=== PATIENT | female | born 1950 | race Caucasian/White ===

== ENCOUNTER 2019-11-15 10:51 | Inpatient (IN) | payer MEDICARE, BC, OTHER ==
[~2019-11-15] VITALS: Ht 147.3 cm; Wt 48.1 kg
[2019-11-15] MEDS ORDERED: ELIQ2.5T PO (11:01)
[2019-11-15] MEDS ORDERED: ZOFR4TAB16 PO (11:01)
--- NOTE | 2019-11-15 11:49 | REP ---
CT BRAIN WITHOUT CONTRAST: HISTORY: Altered mental status. No comparison brain imaging. FINDINGS: Preliminary digital digital marketing associate radiograph is unremarkable. Bone window settings demonstrate an intact bony calvarium. There is heavy vascular calcification in the distal internal carotid and vertebral arteries. Visualized paranasal sinuses are clear. No intraorbital abnormality. There is generalized volume loss. Small vessel atherosclerotic changes are seen in the periventricular white matter. There is no evidence intracranial hemorrhage or acute infarction. No mass, extra-axial fluid collection or midline shift is seen. IMPRESSION: Generalized volume loss small vessel changes and extensive vascular calcification. No acute intracranial lesion. Electronically Signed by Carmelo Valdez MD 11/15/2019 12:30 P
[2019-11-15 11:51] LABS: VENOUS BASE EXCESS -3.6 (-2.0-2.0); VENOUS HCO3 21.9 MEQ/L (23.0-27.0); VENOUS O2 SATURATION 55.4 % (60.0-80.0); VENOUS PARTIAL PRESSURE O2 32.3 mmHg (30.0-50.0); VENOUS PH 7.345 UNITS (7.330-7.430); VENOUS STANDARD HCO3 20.5 MEQ/L; VENOUS TOTAL CO2 23.1 MEQ/L (24.0-28.0)
[2019-11-15 11:55] LABS: BASO # 0.1 10^3/uL (0.0-0.2); BASO % 0.9 % (0.0-1.0); EOS # 0.1 10^3/uL (0.0-0.5); EOS % 0.6 % (0.0-3.0); HEMATOCRIT 41.1 % (36.0-47.0); HEMOGLOBIN 14.1 g/dl (12.0-15.5); LYMPH # 1.3 10^3/uL (1.5-5.0); LYMPH % 13.5 % (24.0-44.0); MEAN CORPUSCULAR HEMOGLOBIN 30.9 pg (27.0-33.0); MEAN CORPUSCULAR HGB CONC 34.3 g/dl (32.0-36.5); MEAN CORPUSCULAR VOLUME 90.1 fl (80.0-96.0); NEUTROPHILS # 7.3 10^3/uL (1.5-8.5); NEUTROPHILS % 74.5 % (36.0-66.0); PLATELET COUNT, AUTOMATED 274 10^3/uL (150-450); RED BLOOD COUNT 4.56 10^6/uL (4.00-5.40); WHITE BLOOD COUNT 9.8 10^3/uL (4.0-10.0)
[2019-11-15] MEDS ORDERED: KCL 10MEQ/100ML SWI (KRUN) 10 MEQ in IV 1 EA IV ONE ×2 (12:15→12:45)
--- NOTE | 2019-11-15 12:20 | REP ---
PORTABLE CHEST X-RAY: Sitting AP view. HISTORY: Altered mental status. Comparison chest x-ray December 31, 2010. FINDINGS: The lungs are well inflated and clear. The pleural angles are sharp. Heart size is normal. Pulmonary vasculature is not increased. There is a vena cava filter in place in the upper abdomen and there are clips in the right upper quadrant post cholecystectomy. There is a healed or healing rib fracture on the left posterolaterally. Another healed or healing rib fractures noted anterolaterally on the right. There is some diffuse osteopenia. IMPRESSION: No active cardiopulmonary disease. Healing rib fractures bilaterally. IVC filter and cholecystectomy clips. Electronically Signed by Carmelo Valdez MD 11/15/2019 12:32 P
[2019-11-15] MEDS: POTASSIUM CHLORIDE 10 MEQ SR TABLET PO ONE ×2 (12:21→12:35)
[2019-11-15 12:34] LABS: OSMOLALITY SERUM 286 MOSM/KG (280-301)
[2019-11-15 12:45] LABS: ALBUMIN 2.6 GM/DL (3.2-5.2); ALT/SGPT 12 U/L (12-78); BILIRUBIN,DIRECT 0.6 MG/DL (0.0-0.2); BILIRUBIN,TOTAL 1.5 MG/DL (0.2-1.0); CK-MB VALUE MASS 2.3 NG/ML (<3.6); CPK CREATINE PHOSPHOKINASE 63 U/L (26-192); MB/CK RELATIVE INDEX 3.65 (< OR =4); TROPONIN I < 0.02 NG/ML (< 0.10)
[2019-11-15] MEDS ORDERED: NS 500 ML IV ONE (12:45)
[2019-11-15] MEDS ORDERED: HYDR-3363 (14:08)
[2019-11-15] MEDS ORDERED: ELIQ5TAB PO (14:08)
[2019-11-15] MEDS ORDERED: BACL10TA2 (14:08)
[2019-11-15] MEDS ORDERED: ONDA4TAB6 PO (14:08)
--- NOTE | 2019-11-15 14:11 | REP ---
REASON: Vomiting. PRIORS: None. The lack of intravenous contrast and/or bowel preparatory contrast decreases the sensitivity of the exam. For a description of the lung bases, see chest CT report made the same day. Limited evaluation of the solid intra-abdominal organs show no gross abnormalities. The patient is status post cholecystectomy. Limited evaluation of the pancreas, adrenal glands, kidneys show no gross abnormalities. There are tiny millimeter sized bilateral nephroliths but no obstructive phenomena. There is a [place] filter seen in the inferior vena cava the tip of which is superior to the level of the right renal vein. There is calcific atherosclerotic change seen in the aorta. Limited evaluation of the intra-abdominal and intrapelvic bowel loops and their mesenteries show no gross abnormalities. There is no free fluid or free air in the abdomen or pelvis. There is no evidence of an intra-abdominal or intrapelvic mass or adenopathy. Seen in the urinary bladder on the right, which is at present, the dependent portions since the patient is tilted to the right. There is a 3 mm sized calcification consistent with a cystolith possibly recently passed. Bone window technique through the examination shows chronic osseous changes and old right-sided rib fractures, age undetermined. IMPRESSION: 1. There is a tiny calcification in the urinary bladder as described above. 2. There are nonobstructing tiny bilateral nephroliths. 3. Other findings and chronic changes as described above. Electronically Signed by Malcolm Milton DO 11/15/2019 05:03 P
--- NOTE | 2019-11-15 14:22 | REP ---
REASON: Vomiting and coughing. There are no priors. The lack of intravenous contrast decreases the sensitivity of the exam. For a description of the imaged upper abdomen, see the CT abdomen and pelvis report made the same day. There is no gross mediastinal or hilar adenopathy. There are no pleural or pericardial effusions. The imaged osseous structures show right 6th an 5th rib fractures, which are old. The bones are demineralized and there are chronic changes seen involving the spine. Evaluation of the lung myers shows a slightly irregular ground-glass nodule in the inferior aspect of the anterior segment of the left upper lobe which measures approximately 9 mm. There is cylindrical bronchiectasis. IMPRESSION: 1. Ground-glass nodule as described above. According to the revised Fleischner Society criteria 3-month followup is recommended with consideration made for PET/CT at this time. 2. Bronchiectasis. 3. Osseous findings as described above. 4. There are tiny air densities in the neck root and in the soft tissues deep to the distal clavicles left greater than right the etiology of which is completely unknown. I am uncertain if they are of vascular origin but they appear not to be. This needs to be followed closely with clinical evaluation. 5. There is also an old left 7th rib fracture. Electronically Signed by Malcolm Milton DO 11/15/2019 05:03 P
[2019-11-15] MEDS ORDERED: DEXTROSE 50% 50 ML SYRINGE IV PRN (15:15)
[2019-11-15] MEDS ORDERED: GLUCAGON INJ 1MG VIAL SC PRN (15:15)
[2019-11-15] MEDS ORDERED: ACETAMINOPHEN TAB 650MG DOSE (2X325MG) PO PRN (15:15)
[2019-11-15] MEDS ORDERED: GLUCOSE 4GM CHEW TABLET PO PRN (15:15)
[2019-11-15 15:29] LABS: MAGNESIUM LEVEL 1.5 MG/DL (1.8-2.4); PHOSPHORUS LEVEL 3.2 MG/DL (2.5-4.9)
--- NOTE | 2019-11-15 16:25 | HPEPDOC ---
General Date of Admission Nov 15, 2019 at 15:13 Date of Service: Nov 15, 2019 Chief Complaint The patient is a 69-year-old female Who presented to the ER with complaints of nausea and vomiting for 4 months History of Present Illness Patient is a 69-year-old female, does not follow up with her primary care provider and has not been compliant with her medications. . She has a PMHx of HTN, Cor pulmonale / Pulmonary HTN, Pre-DM2, DLP, Bilateral DVT (s/p IVC and on Eliquis), Cardiorenal syndrome / CKD3, Fatty liver, Sjogren Syndrome, Ankylosing spondylitis, Fibromyalgia, Depression, Gout, Vitamin D deficiency, GERD, who is present to the emergency room with complaints of nausea and vomiting for 4 months. Patient reports that shes been experiencing nausea and vomiting at least once a day for the last 1 month. She reports that her abdomen feels achy. Denies any diarrhea. Reports constipation. Last bowel movement was 2 days prior. Denies any urinary discomfort. Denies any fevers or chills. Patient reports very mild chest pain. Reports it is on and off radiating across her chest with some light headedness and dizziness. Patient reports her appetite has been very poor and has reported 100 pound weight loss over 8 months. Home Medications Scheduled Apixaban (Eliquis) 5 Mg Tablet, 5 MG PO BID, (Reported) Scheduled PRN Ondansetron (Ondansetron Odt) 4 Mg Tab.rapdis, 4 MG PO TID PRN for NAUSEA OR VOMITING, (Reported) Allergies Coded Allergies: Penicillins (Verified Allergy, Unknown, 11/15/19) Past Medical History Medical History HTN, Cor pulmonale / Pulmonary HTN, Pre-DM2, DLP, Bilateral DVT (s/p IVC and on Eliquis), Cardiorenal syndrome / CKD3, Fatty liver, Sjogren Syndrome, Ankylosing spondylitis, Fibromyalgia, Depression, Gout, Vitamin D deficiency, GERD Surgical History Right wrist surgery Cholecystectomy Hysterectomy with bilateral salpingo-oophorectomy Bladder suspension surgery Family History - Father with a history of arthritis, kidney failure and heart disease - Mother with a history of strokes and heart disease Social History - Denies the use of alcohol, tobacco or illicit drugs - Patient is and lives with her Review of Systems Other systems 10 point review of systems complete, all negative otherwise stated in HPI Vital Signs - Vitals: BP 147/81, HR 87, RR 18, Sat 98%RA, Temp 96.9F - General: Lying in bed, No acute distress, Speaking in full sentences, AAOx3 - HEENT: NC, AT, PERRLA, EOMI - CVS: RRR, +S1S2 - Lungs: Fair air entry bilaterally, No appreciable wheezing / rales / rhonchi - Abdomen: Soft, Non-distended, Non-tender - Extremities: No lower extremity edema, No calf tenderness - Neuro: No focal motor or sensory deficit - Skin: No visible rashes Laboratory Data Labs 24H Laboratory Tests 2 11/15/19 11:38: Immature Granulocyte % (Auto) 0.5, Neutrophils (%) (Auto) 74.5H, Lymphocytes (%) (Auto) 13.5L, Monocytes (%) (Auto) 10.0H, Eosinophils (%) (Auto) 0.6, Basophils (%) (Auto) 0.9, Neutrophils # (Auto) 7.3, Lymphocytes # (Auto) 1.3L, Monocytes # (Auto) 1.0H, Eosinophils # (Auto) 0.1, Basophils # (Auto) 0.1, Nucleated Red Blood Cells % (auto) 0.4H, Blood Gas Bicarbonate Standard 20.5, Venous Blood pH 7.345, Venous Blood Partial Pressure CO2 41.0, Venous Blood Partial Pressure O2 32.3, Venous Blood Total Carbon Dioxide 23.1L, Venous Blood HCO3 21.9L, Venous Blood Oxygen Saturation 55.4L, Venous Blood Base Excess -3.6L, Osmolality 286, Lactic Acid Level 3.5*H, Phosphorus Level 3.2, Magnesium Level 1.5L, Total Bilirubin 1.5H, Direct Bilirubin 0.6H, Aspartate Amino Transf (AST/SGOT) 39H, Alanine Aminotransferase (ALT/SGPT) 12, Alkaline Phosphatase 96, Ammonia < 10, Total Creatine Kinase 63, Creatine Kinase MB 2.3, Creatine Kinase MB Relative Index 3.65, Troponin I < 0.02, Total Protein 7.0, Albumin 2.6L, Albumin/Globulin Ratio 0.6L, Thyroid Stimulating Hormone (TSH) 3.160 11/15/19 11:40: POC Glucose (Misc Panel) 99, POC Sodium (Misc Panel) 135L, POC Potassium (Misc Panel) 2.6*L, POC Chloride (Misc Panel) 93L, POC Total CO2 (Misc Panel) 22.0L, POC Blood Urea Nitrogen (Misc Panel 9, POC Ionized Calcium (Misc Panel) 4.2L, POC Creatinine (Misc Panel) 0.6, POC Hematocrit (Misc Panel) 45.0 CBC/BMP Laboratory Tests 11/15/19 11:38 Microbiology Microbiology 11/15/19 Blood Culture, Received Pending Plan / VTE VTE Prophylaxis Ordered?: Yes Plan Plan Intractable nausea and vomiting - Presented to the ER with complaints of nausea, vomiting for 4 months - Patient reports achy abdominal discomfort and constipation. Denies any fevers or chills - Physical done revealing - Hemodynamically stable and afebrile - Lab work reveals hypokalemia / No elevation of troponins - Will check lipase - Will start - Will start anti-emetics with Zofran and IV fluid hydration Hypokalemia - K of 2.6 - Will check urine electrolytes / osmolality for TTKG - Will supplement via PO and IV routes Hypomagnesemia - Will supplement via IV routes Lactic acidosis - Will start IV fluid hydration Significant weight loss - CT head 11/14: Generalized volume loss small vessel changes and extensive vascular calcification. No acute intracranial lesion. - CXR 11/14: No active cardiopulmonary disease. Healing rib fractures bilaterally. IVC filter and cholecystectomy clips. - CT chest 11/14: 1. Ground-glass nodule as described above. According to the revised Fleischner Society criteria 3-month followup is recommended with consideration made for PET/CT at this time. 2. Bronchiectasis. 3. Osseous findings as described above. 4. There are tiny air densities in the neck root and in the soft tissues deep to the distal clavicles left greater than right the etiology of which is completely unknown. I am uncertain if they are of vascular origin but they appear not to be. This needs to be followed closely with clinical evaluation. 5. There is also an old left 7th rib fracture. - CT abdomen / pelvis 11/14: 1. There is a tiny calcification in the urinary bladder as described above. 2. There are nonobstructing tiny bilateral nephroliths. 3. Other findings and chronic changes as described above. - Patient will need to have age-related screening procedures completed, likely as an outpatient HTN / Cor pulmonale / Pulmonary HTN - BP well controlled - Currently does not take any medications as an outpatient Pre-DM2 - Will check A1c - Will start ISS DLP - Currently not on medications Bilateral DVT - s/p IVC 04/27/2019 - c/w full anticoagulation with Eliqumarilyn CKD3 - Hx of Cardiorenal syndrome - Renal function appears to be normal at this time Fatty liver - Mild elevation of AST Sjogren Syndrome Ankylosing spondylitis - Currently not on medications Fibromyalgia / Depression - Currently not on medications Gout - Currently not on medications Vitamin D deficiency - Currently not on medications GERD - Currently not on medications DVT prophylaxis - Will c/w full anticoagulation with LORENZA Patel MD Nov 15, 2019 16:25
[2019-11-15] MEDS: KCL 40MEQ in NS 1000ML 1,000 ML IV SCH (16:35)
[2019-11-15] MEDS: HumaLOG INSULIN (NovoLOG) PER UNIT SC SCH ×2 (17:30→20:21)
[2019-11-15 18:03] LABS: HEMOGLOBIN A1c 4.1 %
[2019-11-15 18:13] LABS: OSMOLALITY SERUM 283 MOSM/KG (280-301)
[2019-11-15 18:25] LABS: BLOOD UREA NITROGEN 9 MG/DL (7-18); CARBON DIOXIDE LEVEL 25 MEQ/L (21-32); CHLORIDE LEVEL 99 MEQ/L (98-107); CK-MB VALUE MASS 2.4 NG/ML (<3.6); CPK CREATINE PHOSPHOKINASE 71 U/L (26-192); CREATININE FOR GFR 0.57 MG/DL (0.55-1.30); GLOMERULAR FILTRATION RATE > 60.0 (>39); GLUCOSE, FASTING 81 MG/DL (70-100); LIPASE 62 U/L (73-393); MB/CK RELATIVE INDEX 3.38 (< OR =4); POTASSIUM SERUM 3.6 MEQ/L (3.5-5.1); SODIUM LEVEL 138 MEQ/L (136-145); TROPONIN I 0.02 NG/ML (< 0.10)
[2019-11-15 18:40] VITALS: BP 129/77
[2019-11-15] MEDS: MAG SULF 1GM/100ML (MAG RUN) 1 GM in IV 1 EA IV SCH ×2 (19:39→20:23)
[2019-11-15 20:00] VITALS: BP 150/73
[2019-11-15] MEDS: APIXABAN 5 MG TAB (ELIQUIS) PO SCH (20:23)
--- NOTE | 2019-11-15 21:43 | ECGEPIP ---
[facility] - ED Test Date: 2019-11-15 Pat Name: WILLOW HAMILTON Department: Room: - Gender: Female Mobile Paramedical Examiner: radha : 1950 Requested By: Angelia Maldonado Order Number: [id number] Reading MD: Collin Briggs Measurements Intervals [place] Rate: 92 P: 62 DC: 134 QRS: -11 QRSD: 76 T: 34 QT: 374 QTc: 465 Interpretive Statements SINUS RHYTHM POSSIBLE INFERIOR MYOCARDIAL INFARCTION, PROBABLY OLD BASELINE ARTIFACT AFFECTS INTERPRETATION NO PRIORS FOR COMPARISON Electronically Signed on 11-15-2019 21:43:42 EDT by Collin Briggs
[2019-11-15 22:28] LABS: CK-MB VALUE MASS 2.3 NG/ML (<3.6); CPK CREATINE PHOSPHOKINASE 77 U/L (26-192); MB/CK RELATIVE INDEX 2.99 (< OR =4); TROPONIN I < 0.02 NG/ML (< 0.10)
[2019-11-16] VITALS: BP 141/67
[2019-11-16] MEDS: ONDANSETRON 4MG/2ML VIAL IV PRN ×3 (03:40→16:58)
[2019-11-16 04:00] VITALS: BP 135/64
[2019-11-16 05:14] LABS: BASO # 0.1 10^3/uL (0.0-0.2); BASO % 0.6 % (0.0-1.0); EOS # 0.1 10^3/uL (0.0-0.5); EOS % 1.6 % (0.0-3.0); HEMATOCRIT 36.5 % (36.0-47.0); HEMOGLOBIN 12.7 g/dl (12.0-15.5); LYMPH # 1.9 10^3/uL (1.5-5.0); LYMPH % 22.7 % (24.0-44.0); MEAN CORPUSCULAR HEMOGLOBIN 30.6 pg (27.0-33.0); MEAN CORPUSCULAR HGB CONC 34.8 g/dl (32.0-36.5); MONO % 12.5 % (0.0-5.0); PLATELET COUNT, AUTOMATED 175 10^3/uL (150-450); RED BLOOD COUNT 4.15 10^6/uL (4.00-5.40); WHITE BLOOD COUNT 8.1 10^3/uL (4.0-10.0)
[2019-11-16 05:27] LABS: BLOOD UREA NITROGEN 8 MG/DL (7-18); CALCIUM LEVEL 7.7 MG/DL (8.8-10.2); CARBON DIOXIDE LEVEL 25 MEQ/L (21-32); CHLORIDE LEVEL 103 MEQ/L (98-107); CREATININE FOR GFR 0.54 MG/DL (0.55-1.30); GLOMERULAR FILTRATION RATE > 60.0 (>39); GLUCOSE, FASTING 78 MG/DL (70-100); MAGNESIUM LEVEL 2.3 MG/DL (1.8-2.4); POTASSIUM SERUM 3.6 MEQ/L (3.5-5.1); SODIUM LEVEL 139 MEQ/L (136-145)
[2019-11-16] MEDS: HumaLOG INSULIN (NovoLOG) PER UNIT SC SCH ×4 (07:30→21:00)
[2019-11-16 08:00] VITALS: BP 137/63
[2019-11-16] MEDS: APIXABAN 5 MG TAB (ELIQUIS) PO SCH ×2 (08:28→21:28)
[2019-11-16] MEDS: KCL 40MEQ in NS 1000ML 1,000 ML IV SCH (08:33)
[2019-11-16] MEDS ORDERED: PROMETHAZINE INJ 25 MG/ML VIAL (J2550) IV ONE (10:45)
[2019-11-16 12:00] VITALS: BP 161/77
[2019-11-16 16:00] VITALS: BP 142/70
--- NOTE | 2019-11-16 16:40 | IPNPDOC ---
Date Seen The patient was seen on 11/16/19. Progress Note SUBJECTIVE: Patient was seen and examined this morning. It appears the patient has had nausea and vomiting symptoms for the past 4 months and has reported weight loss. This morning she states that she has nausea. She also states that she has some abdominal pain. She denies any shortness of breath or chest pain. The patient stated that her helps take care of her and that she is dependent on him. She states that her grandchildren are sometimes able to help. Overnight the patient was noted to have some urinary retention and had received a straight cath/ OBJECTIVE PHYSICAL EXAMINATION: VITAL SIGNS: Please see below. GENERAL: Awake, alert, and oriented. Appears in no acute distress. Lying comfortably in bed. HEENT: Atrauamtic, normocephalic. Eyes are nonicteric. Trachea is midline CARDIOVASCULAR: Normal S1, S2. Regular rate and rhythm. No clicks rubs or murmurs RESPIRATORY: Clear vesicular breath sounds bilaterally. Bibasilar crackles. No wheezes or rhonchi ABDOMINAL: Soft, nondistended. Nontender. Normoactive bowel sounds EXTREMITIES: No edema. Full and equal pulses in bilateral upper and lower extremities bilaterally NEUROLOGICAL: No focal neurological deficits PSYCHOLOGICAL: Affect appropriate LABORATORY DATA, IMAGING STUDIES, MICROBIOLOGY: Please see below. DVT prophylaxis ordered?: Ysabel ASSESSMENT AND PLAN: Patient is a 69 year old female who presented to [facility] with complaint of nausea and vomiting for 4 months PROBLEMS: 1. Nausea and vomiting -Patient had complained of nausea and vomiting for [address] imaging of the abdomen was negative for any acute findings. The patient has apparently had nausea and vomiting for 4 months. She denies fevers, chills, or diarrhea. She states that she is constipated and has not gone to the bathroom in 1 month -Patient was hypokalemic on presentation which does support a history of emesis. She is currently on IVF. She has Zofran prn for nausea and vomiting. Have given a one time dose of Phenergan -Will give clear liquids diet. If tolerating will advance -Given the duration of her symptoms being for greater than 4 months it is not likely to be an infectious cause. Differential remains fairly wide. Her lipase was not elevated and pancreatitis is unlikely. A mechanical obstruction appears unlikely given negative imaging and 4 month duration. Possible may be due to dysmotility disorder including gastroparesis however she is on no medications that could precipitate this nor is she a poorly controlled diabetic. Given her history of Sjorgens may consider scleroderma causing a small intestine dysmotility disorder. However, may be a psychological component driving her nausea and vomiting 2. HTN/Cor Pulmonale -Patient is normotensive. -Regarding her Cor Pulmonale she appears well compensated. Will have to inquire as to what type of pulmonary hypertension/cor pulmonale she has. She does have a history of bilateral DVT with IVC filter placement on 04/27/2019 however no history of PE or chronic thromboembolic disease 3. Pre-DMII -Patient was documented as prediabetes however HgbA1C was 4.6. -At this point she is not prediabetic. 4. Bilateral DVT -Currently on Eliquis outpatient. Will continue 5. CKD Stage III -Currently stable. Will continue to trend Cr 6. Sjogren Syndrome -Appears to be stable. Given this history there is question as to overlap with scleroderma which can cause small intestine dysmotility 7. Fibromyalgia/Depression -Currently not on any outpatient medications for this 8. Deconditioning -Patient appears deconditioned. She relies on her to help her with the majority if not all of her ADLs. She states that it may be too much for him. Patient may need placement. There appears to be a likely underlying psychological component that may possibly be driving her nausea and vomiting as well. -Continue PT/OT -Possible Placement 9. DVT Prophylaxis -On Eliquis DISPOSITION: Patient will likely need placement. VS, I&O, 24H, Fishbone Vital Signs/I&O Vital Signs Date Time Temp Pulse Resp B/P (MAP) Pulse Ox O2 Delivery O2 Flow Rate FiO2 11/16/19 12:00 98.9 86 17 161/77 (105) 98 Room Air I&O- Last 24 Hours up to 6 AM 11/16/19 06:00 Intake Total 1460 ml Output Total 250 ml Balance 1210 ml Laboratory Data 24H LABS Laboratory Tests 2 11/15/19 17:29: Anion Gap 14, Glomerular Filtration Rate > 60.0, Estimated Mean Plasma Glucose 71, Hemoglobin A1c 4.1, Osmolality 283, Lactic Acid Followup at 4 Hours 1.4, Calcium Level 8.0L, Total Creatine Kinase 71, Creatine Kinase MB 2.4, Creatine Kinase MB Relative Index 3.38, Troponin I 0.02, Lipase 62L 11/15/19 20:19: Bedside Glucose (Misc Panel) 97 11/15/19 21:53: Total Creatine Kinase 77, Creatine Kinase MB 2.3, Creatine Kinase MB Relative Index 2.99, Troponin I < 0.02 11/15/19 23:59: Urine Color KYRIE, Urine Appearance CLOUDYH, Urine pH 6.0, Urine Specific [place] 1.015, Urine Protein NEGATIVE, Urine Glucose (UA) NEGATIVE, Urine Ketones 1+H, Urine Blood NEGATIVE, Urine Nitrite POSITIVEH, Urine Bilirubin NEGATIVE, Urine Urobilinogen 4.0H, Urine Leukocyte Esterase NEGATIVE, Urine WBC (Auto) 6H, Urine RBC (Auto) 2, Urine Hyaline Casts (Auto) 0, Urine Bacteria (Auto) 2+H, Urine Squamous Epithelial Cells 0, Urine Amorphous Sediment SMALLH, Urine Mucus (Auto) LARGE, Urine Sperm (Auto) , Urine Random Osmolality 510, Urine Random Creatinine 137.0, Urine Random Potassium 48.0 11/16/19 04:52: Immature Granulocyte % (Auto) 0.6, Neutrophils (%) (Auto) 62.0, Lymphocytes (%) (Auto) 22.7L, Monocytes (%) (Auto) 12.5H, Eosinophils (%) (Auto) 1.6, Basophils (%) (Auto) 0.6, Neutrophils # (Auto) 5.0, Lymphocytes # (Auto) 1.9, Monocytes # (Auto) 1.0H, Eosinophils # (Auto) 0.1, Basophils # (Auto) 0.1, Nucleated Red Blood Cells % (auto) 0.0, Anion Gap 11, Glomerular Filtration Rate > 60.0, Calcium Level 7.7L, Magnesium Level 2.3 11/16/19 12:05: Bedside Glucose (Misc Panel) 73L CBC/BMP Laboratory Tests 11/15/19 17:29 11/16/19 04:52 Microbiology Microbiology 11/15/19 Urine Culture, Received Pending 11/15/19 Blood Culture, Received Pending 11/15/19 Blood Culture - Preliminary, Resulted No growth after 24 hours . All specim... GME ATTESTATION GME ATTESTATION My faculty preceptor for this patient encounter was physically present during the encounter and was fully available. All aspects of the patient interview, examination, medical decision making process, and medical care plan development were reviewed and approved by the faculty preceptor. The faculty preceptor is aware and concurs with the plan as stated in the body of this note and will attest to such by his/her cosignature. ATTENDING NOTE PT WAS SEEN AND EXAMINED BY ME, AGREE WITH THE ABOVE ASSESSMENT AND PLAN. BIANCA ORR DO Nov 16, 2019 16:40 JIM RIGGINS MD Nov 18, 2019 14:18
[2019-11-16] MEDS: D5W/0.45% SODIUM CHLORIDE 1,000 ML IV SCH (18:36)
[2019-11-16 20:00] VITALS: BP 147/78
[2019-11-17] VITALS: BP 154/78
[2019-11-17 04:00] VITALS: BP 134/68
[2019-11-17 05:42] LABS: BASO # 0.1 10^3/uL (0.0-0.2); BASO % 1.1 % (0.0-1.0); EOS # 0.2 10^3/uL (0.0-0.5); EOS % 2.8 % (0.0-3.0); HEMATOCRIT 31.6 % (36.0-47.0); HEMOGLOBIN 10.8 g/dl (12.0-15.5); LYMPH # 1.2 10^3/uL (1.5-5.0); LYMPH % 22.8 % (24.0-44.0); MEAN CORPUSCULAR HEMOGLOBIN 30.5 pg (27.0-33.0); MEAN CORPUSCULAR HGB CONC 34.2 g/dl (32.0-36.5); MEAN CORPUSCULAR VOLUME 89.3 fl (80.0-96.0); MONO # 0.7 10^3/uL (0.0-0.8); MONO % 13.1 % (0.0-5.0); NEUTROPHILS # 3.2 10^3/uL (1.5-8.5); NEUTROPHILS % 59.6 % (36.0-66.0); PLATELET COUNT, AUTOMATED 136 10^3/uL (150-450); RED BLOOD COUNT 3.54 10^6/uL (4.00-5.40); WHITE BLOOD COUNT 5.3 10^3/uL (4.0-10.0)
[2019-11-17 05:57] LABS: BLOOD UREA NITROGEN 4 MG/DL (7-18); CALCIUM LEVEL 7.1 MG/DL (8.8-10.2); CARBON DIOXIDE LEVEL 24 MEQ/L (21-32); CHLORIDE LEVEL 108 MEQ/L (98-107); CREATININE FOR GFR 0.46 MG/DL (0.55-1.30); GLOMERULAR FILTRATION RATE > 60.0 (>39); GLUCOSE, FASTING 99 MG/DL (70-100); MAGNESIUM LEVEL 1.7 MG/DL (1.8-2.4); POTASSIUM SERUM 3.4 MEQ/L (3.5-5.1); SODIUM LEVEL 139 MEQ/L (136-145)
[2019-11-17] MEDS ORDERED: POTASSIUM CHLORIDE 10% LIQ 20 MEQ/15 ML UDC PO ONE (07:30)
[2019-11-17] MEDS: HumaLOG INSULIN (NovoLOG) PER UNIT SC SCH ×4 (07:30→20:27)
[2019-11-17] MEDS: APIXABAN 5 MG TAB (ELIQUIS) PO SCH ×2 (09:47→20:29)
[2019-11-17] MEDS: D5W/0.45% SODIUM CHLORIDE 1,000 ML IV SCH (11:25)
--- NOTE | 2019-11-17 11:58 | IPNPDOC ---
Date Seen The patient was seen on 11/17/19. Progress Note SUBJECTIVE: Patient was seen and examined this morning. She currently states that she continues to have nausea and vomiting. She has been able to tolerate oral intake. She states that she does not have an appetite. She states that her symptoms are the same as they have been for 4 months. OBJECTIVE PHYSICAL EXAMINATION: VITAL SIGNS: Please see below. GENERAL: Awake, alert, and oriented. Appears in no acute distress. Lying comfortably in bed. HEENT: Atrauamtic, normocephalic. Eyes are nonicteric. Trachea is midline CARDIOVASCULAR: Normal S1, S2. Regular rate and rhythm. No clicks rubs or murmurs RESPIRATORY: Clear vesicular breath sounds bilaterally. Bibasilar crackles. No wheezes or rhonchi ABDOMINAL: Soft, nondistended. Nontender. Normoactive bowel sounds EXTREMITIES: No edema. Full and equal pulses in bilateral upper and lower extremities bilaterally NEUROLOGICAL: No focal neurological deficits PSYCHOLOGICAL: Affect appropriate LABORATORY DATA, IMAGING STUDIES, MICROBIOLOGY: Please see below. DVT prophylaxis ordered?: Eliquis ASSESSMENT AND PLAN: Patient is a 69 year old female who presented to [facility] with complaint of nausea and vomiting for 4 months PROBLEMS: 1. Nausea and vomiting -Patient had complained of nausea and vomiting for [address] imaging of the abdomen was negative for any acute findings. The patient has apparently had nausea and vomiting for 4 months. She denies fevers, chills, or diarrhea. She states that she is constipated and has not gone to the bathroom in 1 month -Will advance diet to full liquids -Patient may benefit from an outpatient GI workup for endoscopy 2. HTN/Cor Pulmonale -Patient is normotensive. -Regarding her Cor Pulmonale she appears well compensated. Will have to inquire as to what type of pulmonary hypertension/cor pulmonale she has. She does have a history of bilateral DVT with IVC filter placement on 04/27/2019 however no history of PE or chronic thromboembolic disease 3. Pre-DMII -Patient was documented as prediabetes however HgbA1C was 4.6. -At this point she is not prediabetic. 4. Bilateral DVT -Currently on Eliquis outpatient. Will continue 5. CKD Stage III -Currently stable. Will continue to trend Cr 6. Sjogren Syndrome -Appears to be stable. Given this history there is question as to overlap with scleroderma which can cause small intestine dysmotility 7. Fibromyalgia/Depression -Currently not on any outpatient medications for this 8. Deconditioning -Patient appears deconditioned. She relies on her to help her with the majority if not all of her ADLs. She states that it may be too much for him. Patient may need placement. There appears to be a likely underlying psychological component that may possibly be driving her nausea and vomiting as well. -Continue PT/OT -Patient needs placement in subacute rehab 9. DVT Prophylaxis -On Eliquis DISPOSITION: Currently patient is awaiting bed availability for subacute rehab placement. Anticipate 24 hours before placement VS, I&O, 24H, Fishbone Vital Signs/I&O Vital Signs Date Time Temp Pulse Resp B/P (MAP) Pulse Ox O2 Delivery O2 Flow Rate FiO2 11/17/19 04:00 97.7 78 20 134/68 (90) 99 Room Air I&O- Last 24 Hours up to 6 AM 11/17/19 06:00 Intake Total 1560 ml Output Total 950 ml Balance 610 ml Laboratory Data 24H LABS Laboratory Tests 2 11/16/19 12:05: Bedside Glucose (Misc Panel) 73L 11/16/19 16:37: Bedside Glucose (Misc Panel) 69L 11/16/19 17:59: Bedside Glucose (Misc Panel) 70L 11/16/19 21:26: Bedside Glucose (Misc Panel) 79L 11/16/19 23:42: Bedside Glucose (Misc Panel) 90 11/17/19 05:20: Immature Granulocyte % (Auto) 0.6, Neutrophils (%) (Auto) 59.6, Lymphocytes (%) (Auto) 22.8L, Monocytes (%) (Auto) 13.1H, Eosinophils (%) (Auto) 2.8, Basophils (%) (Auto) 1.1H, Neutrophils # (Auto) 3.2, Lymphocytes # (Auto) 1.2L, Monocytes # (Auto) 0.7, Eosinophils # (Auto) 0.2, Basophils # (Auto) 0.1, Nucleated Red Blood Cells % (auto) 0.0, Anion Gap 7L, Glomerular Filtration Rate > 60.0, Calcium Level 7.1L, Magnesium Level 1.7L CBC/BMP Laboratory Tests 11/17/19 05:20 Microbiology Microbiology 11/15/19 Urine Culture, Received Pending 11/15/19 Blood Culture - Preliminary, Resulted No growth after 24 hours . All specim... 11/15/19 Blood Culture - Preliminary, Resulted No growth after 24 hours . All specim... GME ATTESTATION GME ATTESTATION My faculty preceptor for this patient encounter was physically present during the encounter and was fully available. All aspects of the patient interview, examination, medical decision making process, and medical care plan development were reviewed and approved by the faculty preceptor. The faculty preceptor is aware and concurs with the plan as stated in the body of this note and will attest to such by his/her cosignature. ATTENDING NOTE PT WAS SEEN AND EXAMINED BY ME, AGREE WITH THE ABOVE ASSESSMENT AND PLAN. BIANCA ORR DO Nov 17, 2019 11:58 JIM RIGGINS MD Nov 18, 2019 14:20
[2019-11-17 12:00] VITALS: BP 148/90
[2019-11-17] MEDS: ONDANSETRON 4MG/2ML VIAL IV PRN (18:48)
[2019-11-17 20:00] VITALS: BP 160/82
[2019-11-17] MEDS: MAALOX 30 ML SUSP *UDC PO PRN (22:51)
[2019-11-17 23:20] VITALS: BP 160/84
[2019-11-18] MEDS: ONDANSETRON 4MG/2ML VIAL IV PRN ×2 (04:36→16:44)
[2019-11-18 06:00] VITALS: BP 147/89
[2019-11-18] MEDS: D5W/0.45% SODIUM CHLORIDE 1,000 ML IV SCH ×2 (06:13→22:49)
[2019-11-18] MEDS: HumaLOG INSULIN (NovoLOG) PER UNIT SC SCH ×4 (07:30→20:01)
[2019-11-18 08:10] LABS: BASO % 0.3 % (0.0-1.0); HEMATOCRIT 37.6 % (36.0-47.0); HEMOGLOBIN 13.2 g/dl (12.0-15.5); LYMPH # 0.9 10^3/uL (1.5-5.0); LYMPH % 9.6 % (24.0-44.0); MEAN CORPUSCULAR HEMOGLOBIN 30.3 pg (27.0-33.0); MEAN CORPUSCULAR HGB CONC 35.1 g/dl (32.0-36.5); MEAN CORPUSCULAR VOLUME 86.4 fl (80.0-96.0); MONO # 0.7 10^3/uL (0.0-0.8); MONO % 6.9 % (0.0-5.0); NEUTROPHILS # 7.8 10^3/uL (1.5-8.5); NEUTROPHILS % 82.5 % (36.0-66.0); PLATELET COUNT, AUTOMATED 309 10^3/uL (150-450); RED BLOOD COUNT 4.35 10^6/uL (4.00-5.40); WHITE BLOOD COUNT 9.5 10^3/uL (4.0-10.0)
[2019-11-18] MEDS: APIXABAN 5 MG TAB (ELIQUIS) PO SCH ×2 (08:27→22:00)
[2019-11-18 08:36] LABS: BLOOD UREA NITROGEN 3 MG/DL (7-18); CALCIUM LEVEL 7.6 MG/DL (8.8-10.2); CARBON DIOXIDE LEVEL 20 MEQ/L (21-32); CHLORIDE LEVEL 101 MEQ/L (98-107); CREATININE FOR GFR 0.69 MG/DL (0.55-1.30); GLOMERULAR FILTRATION RATE > 60.0 (>39); GLUCOSE, FASTING 170 MG/DL (70-100); MAGNESIUM LEVEL 1.7 MG/DL (1.8-2.4); POTASSIUM SERUM 3.3 MEQ/L (3.5-5.1); SODIUM LEVEL 135 MEQ/L (136-145)
[2019-11-18] MEDS: SENNA 8.6 MG TAB (SENOKOT) PO SCH ×2 (09:00→10:06)
[2019-11-18] MEDS ORDERED: MIRALAX *UNIT DOSE* 17GM PACKET PO PRN (09:45)
[2019-11-18] MEDS ORDERED: MECLIZINE 12.5 MG TAB PO PRN (09:45)
[2019-11-18] MEDS ORDERED: FLEET ENEMA PR PRN ×2 (09:45→21:30)
[2019-11-18 14:00] VITALS: BP 135/77
--- NOTE | 2019-11-18 15:27 | IPNPDOC ---
Date Seen The patient was seen on 11/18/19. Progress Note SUBJECTIVE: Patient was seen and examined this morning. She continues to have nausea which appears to be related to BPPV. She does tolerate a diet. She was planned to be discharged to [facility] today however there was concern at the detention that the patient was not having a bowel movement even though she is passing gas. From a medical stand point the patient has been found to be safe for discharge. OBJECTIVE PHYSICAL EXAMINATION: VITAL SIGNS: Please see below. GENERAL: Awake, alert, and oriented. Appears in no acute distress. Lying comfortably in bed. HEENT: Atrauamtic, normocephalic. Eyes are nonicteric. Trachea is midline. horizontal nystagmus present CARDIOVASCULAR: Normal S1, S2. Regular rate and rhythm. No clicks rubs or murmurs RESPIRATORY: Clear vesicular breath sounds bilaterally. Bibasilar crackles. No wheezes or rhonchi ABDOMINAL: Soft, nondistended. Nontender. Normoactive bowel sounds EXTREMITIES: No edema. Full and equal pulses in bilateral upper and lower extremities bilaterally NEUROLOGICAL: No focal neurological deficits PSYCHOLOGICAL: Affect appropriate LABORATORY DATA, IMAGING STUDIES, MICROBIOLOGY: Please see below. DVT prophylaxis ordered?: Ysabel ASSESSMENT AND PLAN: Patient is a 69 year old female who presented to [facility] with complaint of nausea and vomiting for 4 months PROBLEMS: 1. Nausea and vomiting -Patient had complained of nausea and vomiting for [address] imaging of the abdomen was negative for any acute findings. The patient has apparently had nausea and vomiting for 4 months. She denies fevers, chills, or diarrhea. She states that she is constipated and has not gone to the bathroom in 1 month -Will advance diet to full liquids -Patient may benefit from an outpatient GI workup for endoscopy -Patient does have vertigo. She has been given her home meclizine. 2. HTN/Cor Pulmonale -Patient is normotensive. -Regarding her Cor Pulmonale she appears well compensated. Will have to inquire as to what type of pulmonary hypertension/cor pulmonale she has. She does have a history of bilateral DVT with IVC filter placement on 04/27/2019 however no history of PE or chronic thromboembolic disease 3. Pre-DMII -Patient was documented as prediabetes however HgbA1C was 4.6. -At this point she is not prediabetic. 4. Bilateral DVT -Currently on Eliquis outpatient. Will continue 5. CKD Stage III -Currently stable. Will continue to trend Cr 6. Sjogren Syndrome -Appears to be stable. Given this history there is question as to overlap with scleroderma which can cause small intestine dysmotility 7. Fibromyalgia/Depression -Currently not on any outpatient medications for this 8. Deconditioning -Patient appears deconditioned. She relies on her to help her with the majority if not all of her ADLs. She states that it may be too much for him. Patient may need placement. There appears to be a likely underlying psychological component that may possibly be driving her nausea and vomiting as well. -Continue PT/OT -Patient needs placement in subacute rehab 9. Protein Calorie Malnutrition -Patient has had chronic nausea vomiting and weight-loss over past 4-8 months -Will supplement with Ensure 10. DVT Prophylaxis -On Eliquis DISPOSITION: Barriers to discharge include placement into [facility] VS, I&O, 24H, Fishbone Vital Signs/I&O Vital Signs Date Time Temp Pulse Resp B/P (MAP) Pulse Ox O2 Delivery O2 Flow Rate FiO2 11/18/19 14:00 96.6 80 18 135/77 (96) 100 Room Air I&O- Last 24 Hours up to 6 AM 11/18/19 06:00 Intake Total 1080 ml Output Total 700 ml Balance 380 ml Laboratory Data 24H LABS Laboratory Tests 2 11/17/19 17:08: Bedside Glucose (Misc Panel) 94 11/17/19 20:24: Bedside Glucose (Misc Panel) 96 11/18/19 07:44: Immature Granulocyte % (Auto) 0.7, Neutrophils (%) (Auto) 82.5H, Lymphocytes (%) (Auto) 9.6L, Monocytes (%) (Auto) 6.9H, Eosinophils (%) (Auto) 0.0, Basophils (%) (Auto) 0.3, Neutrophils # (Auto) 7.8, Lymphocytes # (Auto) 0.9L, Monocytes # (Auto) 0.7, Eosinophils # (Auto) 0.0, Basophils # (Auto) 0.0, Nucleated Red Blood Cells % (auto) 0.0, Anion Gap 14, Glomerular Filtration Rate > 60.0, Calcium Level 7.6L, Magnesium Level 1.7L 11/18/19 11:53: Bedside Glucose (Misc Panel) 169H CBC/BMP Laboratory Tests 11/18/19 07:44 Microbiology Microbiology 11/18/19 Respiratory Virus Panel (PCR) (MALIKA) - Final, Complete 11/15/19 Urine Culture - Preliminary, Resulted Streptococcus Gordonii Staphylococcus Aureus 11/15/19 Blood Culture - Preliminary, Resulted No Growth after 48 hours. All Specime... 11/15/19 Blood Culture - Preliminary, Resulted No Growth after 72 hours. All specime... GME ATTESTATION GME ATTESTATION My faculty preceptor for this patient encounter was physically present during the encounter and was fully available. All aspects of the patient interview, examination, medical decision making process, and medical care plan development were reviewed and approved by the faculty preceptor. The faculty preceptor is aware and concurs with the plan as stated in the body of this note and will attest to such by his/her cosignature. ATTENDING NOTE Pt seen and examined by me. Agree with the above assessment and plan. BIANCA ORR DO Nov 18, 2019 15:27 JIM RIGGINS MD Nov 19, 2019 15:11
[2019-11-18] MEDS: MAALOX 30 ML SUSP *UDC PO PRN (16:44)
--- NOTE | 2019-11-18 21:42 | IPNPDOC ---
Text Note Date of Service The patient was seen on 11/18/19. NOTE I was paged by the nurse to evaluate Ms. You regarding coffee ground azam sis. I came and saw the patient, and emesis. She has no pain, her nausea is now resolved, but she is disconcerted by the appearance of the emesis, as this brownish color seems to be new. H&H had been trending downward since admission, but was back up to 13.2 this morning. She has been on eliquis. Vitals are stable with no tachycardia and no drop in blood pressure. No evidence of acute bleed. Per I/O record, and confirmed by the patient she has not had a bowel movement for at least the past 1 week, apparently this is typical for her to go this long without a bowel movement. May be old blood from the past few days/weeks vs food contents. Given Senna and Miralax earlier today. Enema ordered at this time. VS,Fishbone, I+O VS, Fishbone, I+O Laboratory Tests 11/18/19 07:44 Vital Signs Date Time Temp Pulse Resp B/P (MAP) Pulse Ox O2 Delivery O2 Flow Rate FiO2 11/18/19 14:00 96.6 80 18 135/77 (96) 100 Room Air I&O- Last 24 Hours up to 6 AM 11/18/19 06:00 Intake Total 1080 ml Output Total 700 ml Balance 380 ml EDITH CANO DO Nov 18, 2019 21:34
[2019-11-18] MEDS: MECLIZINE 25 MG TABLET PO PRN (21:59)
[2019-11-18 22:00] VITALS: BP 131/78
[2019-11-19] MEDS: ONDANSETRON 4MG/2ML VIAL IV PRN ×2 (02:12→08:21)
[2019-11-19 06:00] VITALS: BP 139/81
[2019-11-19 07:05] LABS: BASO % 0.2 % (0.0-1.0); EOS % 0.1 % (0.0-3.0); HEMATOCRIT 35.2 % (36.0-47.0); HEMOGLOBIN 12.2 g/dl (12.0-15.5); LYMPH # 1.3 10^3/uL (1.5-5.0); LYMPH % 13.9 % (24.0-44.0); MEAN CORPUSCULAR HGB CONC 34.7 g/dl (32.0-36.5); MEAN CORPUSCULAR VOLUME 86.7 fl (80.0-96.0); MONO # 0.8 10^3/uL (0.0-0.8); MONO % 8.4 % (0.0-5.0); NEUTROPHILS # 6.9 10^3/uL (1.5-8.5); NEUTROPHILS % 76.6 % (36.0-66.0); PLATELET COUNT, AUTOMATED 248 10^3/uL (150-450); RED BLOOD COUNT 4.06 10^6/uL (4.00-5.40)
[2019-11-19 07:26] LABS: BLOOD UREA NITROGEN 4 MG/DL (7-18); CALCIUM LEVEL 7.6 MG/DL (8.8-10.2); CARBON DIOXIDE LEVEL 25 MEQ/L (21-32); CHLORIDE LEVEL 100 MEQ/L (98-107); CREATININE FOR GFR 0.54 MG/DL (0.55-1.30); GLOMERULAR FILTRATION RATE > 60.0 (>39); GLUCOSE, FASTING 98 MG/DL (70-100); MAGNESIUM LEVEL 1.6 MG/DL (1.8-2.4); POTASSIUM SERUM 2.9 MEQ/L (3.5-5.1); SODIUM LEVEL 135 MEQ/L (136-145)
[2019-11-19] MEDS: HumaLOG INSULIN (NovoLOG) PER UNIT SC SCH ×4 (07:30→21:00)
[2019-11-19] MEDS ORDERED: METOCLOPRAMIDE INJ 10MG/2ML VIAL (J2765 PER 1) IV PRN (08:00)
[2019-11-19] MEDS: APIXABAN 5 MG TAB (ELIQUIS) PO SCH ×2 (08:16→20:43)
[2019-11-19] MEDS: SENNA 8.6 MG TAB (SENOKOT) PO SCH ×2 (08:16→20:43)
[2019-11-19] MEDS: MAG SULF 1GM/100ML (MAG RUN) 1 GM in IV 1 EA IV SCH ×4 (08:21→12:18)
[2019-11-19] MEDS: MECLIZINE 25 MG TABLET PO PRN ×2 (08:21→20:43)
[2019-11-19] MEDS ORDERED: MAGIC MOUTHWASH SUSPENSION BTL SSP PRN (09:00)
[2019-11-19] MEDS ORDERED: ONDANSETRON 4MG/2ML VIAL IV PRN (09:00)
[2019-11-19] MEDS ORDERED: POTASSIUM CHLORIDE 10% LIQ 20 MEQ/15 ML UDC PO ONE (09:00)
[2019-11-19] MEDS ORDERED: POTASSIUM CHLORIDE 10 MEQ SR TABLET PO ONE ×2 (11:00→13:00)
[2019-11-19] MEDS: MULTIVITAMINS/MINERALS THERAP 1 TAB PO SCH ×2 (11:09→20:43)
[2019-11-19] MEDS: PANTOPRAZOLE 40MG TAB (PROTONIX) PO SCH (11:09)
--- NOTE | 2019-11-19 12:29 | IPNPDOC ---
Date Seen The patient was seen on 11/19/19. Progress Note SUBJECTIVE: Patient was seen and examined this morning. Appears overnight the patient may have had coffee ground emesis. There have been no further episodes reported. The patient has otherwise been vitally stable. She does continue to have nausea vomiting and dizziness which is chronic. Additionally, she complains of some soreness in her mouth and lips. She denies any difficulty or pain on swa llowing. OBJECTIVE PHYSICAL EXAMINATION: VITAL SIGNS: Please see below. GENERAL: Awake, alert, and oriented. Appears in no acute distress. Lying comfortably in bed. HEENT: Atrauamtic, normocephalic. Eyes are nonicteric. Trachea is midline. horizontal nystagmus present. There is area of blistering/ulceration on the patients lips CARDIOVASCULAR: Normal S1, S2. Regular rate and rhythm. No clicks rubs or murmurs RESPIRATORY: Clear vesicular breath sounds bilaterally. Bibasilar crackles. No wheezes or rhonchi ABDOMINAL: Soft, nondistended. Nontender. Normoactive bowel sounds EXTREMITIES: No edema. Full and equal pulses in bilateral upper and lower extremities bilaterally NEUROLOGICAL: No focal neurological deficits PSYCHOLOGICAL: Affect appropriate LABORATORY DATA, IMAGING STUDIES, MICROBIOLOGY: Please see below. DVT prophylaxis ordered?: Eliquis ASSESSMENT AND PLAN: Patient is a 69 year old female who presented to [facility] with complaint of nausea and vomiting for 4 months PROBLEMS: 1. Nausea and vomiting -Patient had complained of nausea and vomiting for [address] imaging of the abdomen was negative for any acute findings. The patient has apparently had nausea and vomiting for 4 months. She denies fevers, chills, or diarrhea. She states that she is constipated and has not gone to the bathroom in 1 month -Patient has chronic nausea and vomiting. The differential remains wide. This could be gastroparesis. Additionally she does have a history of autoimmune disease. As stated in previous dictations the patient may have delayed gastric emptying from an autoimmune syndrome that leads to nausea and vomiting. She may benefit from a Gastroenterology referral for outpatient evaluation and management for possible endoscopy. -Have started patient on Protonix as she has complained of burning in throat likely from long standing vomiting -Will add Reglan for nausea -Will replete electrolytes prn. Hypomagnesemia today. Will administer 4 magruns. Hypokalemia of 2.9. Will give Potassium today. 80 mEq total. Recheck potassium this evening 2. Vertigo -Patient has long standing history of vertigo. This likely contributes to nausea and vomiting. -Continue Meclizine -May need vestibular therapy 3. Lip Ulceration -Patient has pain/burning on lips that started yesterday. Does not appear herpetic. Possibly an autoimmune association or contact dermatitis. Will consider vitamin deficiency as well -Start multivitamin -Start magic mouthwash prn discomfort 4. HTN/Cor Pulmonale -Patient is normotensive. -Regarding her Cor Pulmonale she appears well compensated. Will have to inquire as to what type of pulmonary hypertension/cor pulmonale she has. She does have a history of bilateral DVT with IVC filter placement on 04/27/2019 however no history of PE or chronic thromboembolic disease 5. Pre-DMII -Patient was documented as prediabetes however HgbA1C was 4.6. -At this point she is not prediabetic. 6. Bilateral DVT -Currently on Eliquis outpatient. Will continue 7. CKD Stage III -Currently stable. Will continue to trend Cr 8. Sjogren Syndrome -Appears to be stable. Given this history there is question as to overlap wi th scleroderma which can cause small intestine dysmotility 9. Fibromyalgia/Depression -Currently not on any outpatient medications for this 10. Deconditioning -Patient appears deconditioned. She relies on her to help her with the majority if not all of her ADLs. She states that it may be too much for him. Patient may need placement. There appears to be a likely underlying psycholog ical component that may possibly be driving her nausea and vomiting as well. -Continue PT/OT -Patient needs placement in subacute rehab 11. Protein Calorie Malnutrition -Patient has had chronic nausea vomiting and weight-loss over past 4-8 months -Will supplement with Ensure -Multivitamin 12. DVT Prophylaxis -On Eliquis DISPOSITION: Patient is pending discharge to [facility] VS, I&O, 24H, [place] Vital Signs/I&O Vital Signs Date Time Temp Pulse Resp B/P (MAP) Pulse Ox O2 Delivery O2 Flow Rate FiO2 11/19/19 06:00 98.7 90 18 139/81 (100) 99 Room Air I&O- Last 24 Hours up to 6 AM 11/19/19 06:00 Intake Total 820 ml Output Total 1025 ml Balance -205 ml Laboratory Data 24H LABS Laboratory Tests 2 11/18/19 16:30: Bedside Glucose (Misc Panel) 138H 11/18/19 20:00: Bedside Glucose (Misc Panel) 116H 11/19/19 06:22: Immature Granulocyte % (Auto) 0.8, Neutrophils (%) (Auto) 76.6H, Lymphocytes (%) (Auto) 13.9L, Monocytes (%) (Auto) 8.4H, Eosinophils (%) (Auto) 0.1, Basophils (%) (Auto) 0.2, Neutrophils # (Auto) 6.9, Lymphocytes # (Auto) 1.3L, Monocytes # (Auto) 0.8, Eosinophils # (Auto) 0.0, Basophils # (Auto) 0.0, Nucleated Red Blood Cells % (auto) 0.0, Anion Gap 10, Glomerular Filtration Rate > 60.0, Calcium Level 7.6L, Magnesium Level 1.6L 11/19/19 11:58: Bedside Glucose (Misc Panel) 120H CBC/BMP Laboratory Tests 11/19/19 06:22 Microbiology Microbiology 11/18/19 Respiratory Virus Panel (PCR) (MALIKA) - Final, Complete 11/15/19 Urine Culture - Final, Complete Streptococcus Gordonii Staph.aureus Methicillin Resis 11/15/19 Blood Culture - Preliminary, Resulted No Growth after 72 hours. All specime... 11/15/19 Blood Culture - Preliminary, Resulted No Growth after 72 hours. All specime... GME ATTESTATION GME ATTESTATION My faculty preceptor for this patient encounter was physically present during the encounter and was fully available. All aspects of the patient interview, examination, medical decision making process, and medical care plan development were reviewed and approved by the faculty preceptor. The faculty preceptor is aware and concurs with the plan as stated in the body of this note and will attest to such by his/her cosignature. ATTENDING NOTE Pt seen and examined by me. Agree with the above assessment and plan. BIANCA ORR DO Nov 19, 2019 12:29 JIM RIGGINS MD Nov 19, 2019 15:15
[2019-11-19 14:00] VITALS: BP 131/71
[2019-11-19] MEDS: KCL 10MEQ/100ML SWI (KRUN) 10 MEQ in IV 1 EA IV SCH ×2 (18:43→20:29)
[2019-11-19] MEDS ORDERED: KCL 40MEQ in NS 1000ML 1,000 ML IV SCH ×2 (20:15→22:00)
[2019-11-19 22:00] VITALS: BP 143/85
[2019-11-20] MEDS: KCL 10MEQ/100ML SWI (KRUN) 10 MEQ in IV 1 EA IV SCH (00:16)
[2019-11-20 06:00] VITALS: BP 130/88
[2019-11-20 07:09] LABS: BASO % 0.2 % (0.0-1.0); EOS % 0.1 % (0.0-3.0); HEMATOCRIT 36.2 % (36.0-47.0); HEMOGLOBIN 12.9 g/dl (12.0-15.5); LYMPH # 1.2 10^3/uL (1.5-5.0); LYMPH % 11.5 % (24.0-44.0); MEAN CORPUSCULAR HEMOGLOBIN 30.6 pg (27.0-33.0); MEAN CORPUSCULAR HGB CONC 35.6 g/dl (32.0-36.5); MONO # 0.9 10^3/uL (0.0-0.8); MONO % 8.5 % (0.0-5.0); NEUTROPHILS # 8.4 10^3/uL (1.5-8.5); NEUTROPHILS % 78.9 % (36.0-66.0); PLATELET COUNT, AUTOMATED 306 10^3/uL (150-450); RED BLOOD COUNT 4.21 10^6/uL (4.00-5.40); WHITE BLOOD COUNT 10.7 10^3/uL (4.0-10.0)
[2019-11-20 07:30] LABS: BLOOD UREA NITROGEN 6 MG/DL (7-18); CALCIUM LEVEL 7.6 MG/DL (8.8-10.2); CARBON DIOXIDE LEVEL 21 MEQ/L (21-32); CHLORIDE LEVEL 104 MEQ/L (98-107); CREATININE FOR GFR 0.43 MG/DL (0.55-1.30); GLOMERULAR FILTRATION RATE > 60.0 (>39); GLUCOSE, FASTING 81 MG/DL (70-100); MAGNESIUM LEVEL 2.6 MG/DL (1.8-2.4); POTASSIUM SERUM 5.6 MEQ/L (3.5-5.1); SODIUM LEVEL 132 MEQ/L (136-145)
[2019-11-20] MEDS: HumaLOG INSULIN (NovoLOG) PER UNIT SC SCH ×4 (07:30→21:00)
[2019-11-20] MEDS: SENNA 8.6 MG TAB (SENOKOT) PO SCH ×3 (09:00→21:00)
[2019-11-20] MEDS: PANTOPRAZOLE 40MG TAB (PROTONIX) PO SCH (09:31)
[2019-11-20] MEDS: MULTIVITAMINS/MINERALS THERAP 1 TAB PO SCH ×2 (09:31→20:30)
[2019-11-20] MEDS: APIXABAN 5 MG TAB (ELIQUIS) PO SCH ×2 (09:31→20:30)
[2019-11-20 14:00] VITALS: BP 130/75
--- NOTE | 2019-11-20 18:30 | IPNPDOC ---
Date Seen The patient was seen on 11/20/19. Progress Note SUBJECTIVE: Patient seem a bit uncomfortable this morning. States that she feels fine although was previously nauseous, had not eaten anything this morning because she didn't like the food. Wondering if she will be discharged tomorrow to [facility]. No episode of bleeding reported. OBJECTIVE PHYSICAL EXAMINATION: VITAL SIGNS: Please see below. General: No acute distress, Alert Eyes: Normal sclera, EOMI HENT: Atraumatic Cardiovascular: Normal rate Pulmonary: Clear to auscultation b/l, no wheezing GI: Soft, nontender, nondistended Skin: Warm and dry Neuro: CN grossly intact. No focal deficits. Strengths equal b/l. Psych: oriented x 3 LABORATORY DATA, IMAGING STUDIES, MICROBIOLOGY: Please see below. DVT prophylaxis ordered?: on eliquis. ASSESSMENT AND PLAN: 1. Persistent chronic nausea/vomiting - Suspect may be due to gastroparesis. CT abdomen with no acute findings. - Ongoing N/V for 4 months now with some constipation. Had history of autoimmune disease. - Refer to GI post discharge for further evaluation and management. - c/w Reglan for nausea. 2. Vertigo - c/w meclizine 3. HTN - BP currently controlled. 4. b/l DVT - on Eliquis, had IVC filter placed 04/2019. 5. Sjogren syndrome - question of overlap with scleroderma, may interfere with intestinal motility l eading to n/v. 6. CKD III - stable. 7. Fibromyalgia/depression 8. Deconditioning - Normally relies on at home for ADLs, worry that it is too much for him. - Likely will need placement. - c/w PT/OT. 9. Protein calorie malnutrition - supplement with ensure and multivitamins disposition: Pending discharge to [facility] DISPOSITION: . VS, I&O, 24H, Fishbone Vital Signs/I&O Vital Signs Date Time Temp Pulse Resp B/P (MAP) Pulse Ox O2 Delivery O2 Flow Rate FiO2 11/20/19 14:00 98.5 100 18 130/75 (93) 97 Room Air I&O- Last 24 Hours up to 6 AM 11/20/19 06:00 Intake Total 2390 ml Balance 2390 ml Laboratory Data 24H LABS Laboratory Tests 2 11/19/19 20:21: Bedside Glucose (Misc Panel) 94 11/20/19 06:27: Immature Granulocyte % (Auto) 0.8, Neutrophils (%) (Auto) 78.9H, Lymphocytes (%) (Auto) 11.5L, Monocytes (%) (Auto) 8.5H, Eosinophils (%) (Auto) 0.1, Basophils (%) (Auto) 0.2, Neutrophils # (Auto) 8.4, Lymphocytes # (Auto) 1.2L, Monocytes # (Auto) 0.9H, Eosinophils # (Auto) 0.0, Basophils # (Auto) 0.0, Nucleated Red Blood Cells % (auto) 0.4H, Anion Gap 7L, Glomerular Filtration Rate > 60.0, Calcium Level 7.6L, Magnesium Level 2.6H 11/20/19 12:25: Bedside Glucose (Misc Panel) 86 11/20/19 16:43: Bedside Glucose (Misc Panel) 98 CBC/BMP Laboratory Tests 11/20/19 06:27 Microbiology Microbiology 11/18/19 Respiratory Virus Panel (PCR) (MALIKA) - Final, Complete 11/15/19 Urine Culture - Final, Complete Streptococcus Gordonii Staph.aureus Methicillin Resis 11/15/19 Blood Culture - Final, Complete NO GROWTH AFTER 5 DAYS 11/15/19 Blood Culture - Final, Complete NO GROWTH AFTER 5 DAYS LOIDA CANCHOLA MD Nov 20, 2019 18:30
[2019-11-20] MEDS: MECLIZINE 25 MG TABLET PO PRN (20:33)
[2019-11-20 22:00] VITALS: BP 116/66
[2019-11-21 05:52] LABS: BASO % 0.4 % (0.0-1.0); EOS # 0.2 10^3/uL (0.0-0.5); EOS % 1.9 % (0.0-3.0); HEMATOCRIT 31.3 % (36.0-47.0); HEMOGLOBIN 10.7 g/dl (12.0-15.5); LYMPH # 2.2 10^3/uL (1.5-5.0); MEAN CORPUSCULAR HEMOGLOBIN 30.2 pg (27.0-33.0); MEAN CORPUSCULAR HGB CONC 34.2 g/dl (32.0-36.5); MEAN CORPUSCULAR VOLUME 88.4 fl (80.0-96.0); MONO # 1.1 10^3/uL (0.0-0.8); MONO % 13.7 % (0.0-5.0); NEUTROPHILS # 4.3 10^3/uL (1.5-8.5); NEUTROPHILS % 55.2 % (36.0-66.0); PLATELET COUNT, AUTOMATED 216 10^3/uL (150-450); RED BLOOD COUNT 3.54 10^6/uL (4.00-5.40); WHITE BLOOD COUNT 7.8 10^3/uL (4.0-10.0)
[2019-11-21 06:00] VITALS: BP 115/65
[2019-11-21 06:34] LABS: BLOOD UREA NITROGEN 9 MG/DL (7-18); CALCIUM LEVEL 7.5 MG/DL (8.8-10.2); CARBON DIOXIDE LEVEL 23 MEQ/L (21-32); CHLORIDE LEVEL 106 MEQ/L (98-107); CREATININE FOR GFR 0.43 MG/DL (0.55-1.30); GLOMERULAR FILTRATION RATE > 60.0 (>39); GLUCOSE, FASTING 70 MG/DL (70-100); MAGNESIUM LEVEL 2.2 MG/DL (1.8-2.4); SODIUM LEVEL 134 MEQ/L (136-145)
[2019-11-21] MEDS: HumaLOG INSULIN (NovoLOG) PER UNIT SC SCH ×2 (07:30→12:00)
[2019-11-21] MEDS: SENNA 8.6 MG TAB (SENOKOT) PO SCH (08:36)
[2019-11-21] MEDS: APIXABAN 5 MG TAB (ELIQUIS) PO SCH (08:37)
[2019-11-21] MEDS: PANTOPRAZOLE 40MG TAB (PROTONIX) PO SCH (08:37)
[2019-11-21] MEDS: MULTIVITAMINS/MINERALS THERAP 1 TAB PO SCH (08:37)
[2019-11-21] MEDS ORDERED: VITMTA PO (10:45)
[2019-11-21] MEDS ORDERED: MECL-86 PO (10:45)
[2019-11-21] MEDS ORDERED: SENN18TA PO (10:45)
[2019-11-21] MEDS ORDERED: REGL5TAB2 PO (10:45)
[2019-11-21] MEDS ORDERED: PANT40TA3 PO (10:45)
--- NOTE | 2019-11-21 19:08 | DS.PDOC ---
Discharge Summary General Date of Admission Nov 15, 2019 at 15:13 Date of Discharge 11/21/19 Attending Physician: LOIDA CANCHOLA MD Discharge Summary PROCEDURES PERFORMED DURING STAY: [None]. ADMITTING DIAGNOSES: 1. Intractable Nausea and Vomiting 2. Protein Calorie Malnutrition 3. Bilateral DVT DISCHARGE DIAGNOSES: 1. Intractable Nausea and Vomiting 2. Protein Calorie Malnutrition 3. Bilateral DVT COMPLICATIONS/CHIEF COMPLAINT: Hypokalemia,Lactic Acidosis. HISTORY OF PRESENT ILLNESS: Patient is a 69 year old female with a past medical history significant for hypertension, cor pulmonale, bilateral DVT s/p IVC filter and on Eliquis, Sjogren syndrome, ankylosing spondylitis, fibromyalgia, GERD, and depression who presented to the [facility] ER with complaint of nausea and vo miting for 4 months. Patient had reported that she has had nausea and vomiting for the past 4 months at least. She states that she has abdominal pain. She had denied any diarrhea. She endorsed constipation. She denied any urinary discomfort. She stated that she has not had an appetite and has had over 100 lb weight-loss of the past year. In the ER the patient was vitally stable. She did have multiple metabolic disturbances including hypokalemia and hypomagnesemia consistent with prolonged vomiting. Imaging of her abdomen and pelvis was negative for any acute process. Patient was admitted to hospitalist service for further evaluation and management HOSPITAL COURSE: On admission the patient was continued on her home medications. Her urine culture from the ED did grow S. gordonii and MRSA however given the patients absent urinary complaints this was felt to be a commensal and she was not treated. It appeared her nausea and vomiting was a chronic condition. She was started on zofran with some improvment. She continued to have nausea and vomiting. Electrolytes were replaced as needed. The patients history was reviewed and it appears she has a significant autoimmune history. 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 The patient was started on reglan. Her nausea and vomiting did improve and her diet was able to be advanced. In regards to discharge, the patient at baseline lays in a bed at home for the m ajority of the day. Her provides care for her however is unable to fully care for her. The patient was recommended for subacute rehab at the very least. She will likely need superintendent terminal placement in the future as it appears the patient is unable to care for herself and her support system may not be adequate to provide the care she necessitates DISCHARGE MEDICATIONS: Please see below. ALLERGIES: Please see below. PHYSICAL EXAMINATION ON DISCHARGE: VITAL SIGNS: Please see below. GENERAL: Awake, alert, and oriented. Appears in no acute distress. Lying comfortably in bed. HEENT: Atrau[place], normocephalic. Eyes are nonicteric. Trachea is midline. horizontal nystagmus present. There is area of blistering/ulceration on the patients lips CARDIOVASCULAR: Normal S1, S2. Regular rate and rhythm. No clicks rubs or murmurs RESPIRATORY: Clear vesicular breath sounds bilaterally. Bibasilar crackles. No wheezes or rhonchi ABDOMINAL: Soft, nondistended. Nontender. Normoactive bowel sounds EXTREMITIES: No edema. Full and equal pulses in bilateral upper and lower extremities bilaterally NEUROLOGICAL: No focal neurological deficits PSYCHOLOGICAL: Affect appropriate LABORATORY DATA: Please see below. IMAGING: CT BRAIN WITHOUT CONTRAST: HISTORY: Altered mental status. No comparison brain imaging. 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 Bone window settings demonstrate an intact bony calvarium. There is heavy vascular calcification in the distal internal carotid and vertebral arteries. Visualized paranasal sinuses are clear. No intraorbital abnormality. There is generalized volume loss. Small vessel atherosclerotic changes are seen in the periventricular white matter. There is no evidence intracranial hemorrhage or acute infarction. No mass, extra-axial fluid collection or midline shift is seen. IMPRESSION: Generalized volume loss small vessel changes and extensive vascular calcification. No acute intracranial lesion. Electronically Signed by Carmelo Valdez MD 11/15/2019 12:30 P PORTABLE CHEST X-RAY: Sitting AP view. HISTORY: Altered mental status. Comparison chest x-ray December 31, 2010. FINDINGS: The lungs are well inflated and clear. The pleural angles are sharp. Heart size is normal. Pulmonary vasculature is not increased. There is a vena cava filter in place in the upper abdomen and there are clips in the right upper quadrant post cholecystectomy. There is a healed or healing rib fracture on the left posterolaterally. Another healed or healing rib fractures noted anterolaterally on the right. There is some diffuse osteopenia. IMPRESSION: No active cardiopulmonary disease. Healing rib fractures bilaterally. IVC filter and cholecystectomy clips. Electronically Signed by Carmelo Valdez MD 11/15/2019 12:32 P REASON: Vomiting and coughing. There are no priors. The lack of intravenous contrast decreases the sensitivity of the exam. For a description of the imaged upper abdomen, see the CT abdomen and pelvis report made the same day. There is no gross mediastinal or hilar adenopathy. There are no pleural or pericardial effusions. The imaged osseous structures show right 6th an 5th rib fractures, which are old. The bones are demineralized and there are chronic changes seen involving the spine. Evaluation of the lung myers shows a slightly irregular ground-glass nodule in the inferior aspect of the anterior segment of the left upper lobe which measures approximately 9 mm. There is cylindrical bronchiectasis. IMPRESSION: 1. Ground-glass nodule as described above. According to the revised Fleischner Society criteria 3-month followup is recommended with consideration made for PET/CT at this time. 2. Bronchiectasis. 3. Osseous findings as described above. 4. There are tiny air densities in the neck root and in the soft tissues deep to the distal clavicles left greater than right the etiology of which is completely unknown. I am uncertain if they are of vascular origin but they appear not to be. This needs to be followed closely with clinical evaluation. 5. There is also an old left 7th rib fracture. Electronically Signed by Malcolm Milton DO 11/15/2019 05:03 P DD: Malcolm Milton MD DO 11/15/19 1342 REASON: Vomiting. PRIORS: None. The lack of intravenous contrast and/or bowel preparatory contrast decreases the sensitivity of the exam. For a description of the lung bases, see chest CT report made the same day. Limited evaluation of the solid intra-abdominal organs show no gross abnormalities. The patient is status post cholecystectomy. Limited evaluation of the pancreas, adrenal glands, kidneys show no gross abnormalities. There are tiny millimeter sized bilateral nephroliths but no obstructive phenomena. There is a [place] filter seen in the inferior vena cava the tip of which is superior to the level of the right renal vein. There is calcific atherosclerotic change seen in the aorta. Limited evaluation of the intra-abdominal and intrapelvic bowel loops and their mesenteries show no gross abnormalities. There is no free fluid or free air in the abdomen or pelvis. There is no evidence of an intra-abdominal or intrapelvic mass or adenopathy. Seen in the urinary bladder on the right, which is at present, the dependent portions since the patient is tilted to the right. There is a 3 mm sized calcification consistent with a cystolith possibly recently passed. Bone window technique through the examination shows chronic osseous changes and old right-sided rib fractures, age undetermined. IMPRESSION: 1. There is a tiny calcification in the urinary bladder as described above. 2. There are nonobstructing tiny bilateral nephroliths. 3. Other findings and chronic changes as described above. Electronically Signed by Malcolm Milton DO 11/15/2019 05:03 P PROGNOSIS: Fair ACTIVITY: [As tolerated]. DIET: as tolerated DISCHARGE PLAN: Patient is to be discharged to [facility] for ongoing rehabilitation. She will likely need penitentiary placement in the future. Recommendations to follow-up with PCP in 7-10 days. Referral to GI for evaluation of gastroparesis. She is to continue Reglan before meals. She is to continue Protonix. She is to continue all her other chronic medications DISPOSITION: [facility] D/T Rehab Facility. DISCHARGE CONDITION: [Stable]. TIME SPENT ON DISCHARGE: 40 minutes. I have personally evaluated and examined the patient. Discussed with resident/student regarding plan of care and agree with the above assessment and plan. Vital Signs/I&Os Vital Signs Date Time Temp Pulse Resp B/P (MAP) Pulse Ox O2 Delivery O2 Flow Rate FiO2 11/21/19 06:00 97.9 89 16 115/65 (82) 99 Room Air I&O- Last 24 Hours up to 6 AM 11/21/19 06:00 Intake Total 980 ml Output Total 0 ml Balance 980 ml Laboratory Data Labs 24H Laboratory Tests 2 11/20/19 19:55: Bedside Glucose (Misc Panel) 93 11/21/19 05:08: Immature Granulocyte % (Auto) 0.8, Neutrophils (%) (Auto) 55.2, Lymphocytes (%) (Auto) 28.0, Monocytes (%) (Auto) 13.7H, Eosinophils (%) (Auto) 1.9, Basophils (%) (Auto) 0.4, Neutrophils # (Auto) 4.3, Lymphocytes # (Auto) 2.2, Monocytes # (Auto) 1.1H, Eosinophils # (Auto) 0.2, Basophils # (Auto) 0.0, Nucleated Red Blood Cells % (auto) 0.0, Anion Gap 5L, Glomerular Filtration Rate > 60.0, Calcium Level 7.5L, Magnesium Level 2.2 11/21/19 11:35: Bedside Glucose (Misc Panel) 97 CBC/BMP Laboratory Tests 11/21/19 05:08 FSBS Laboratory Tests Test 11/20/19 19:55 11/21/19 11:35 Range/Units Bedside Glucose (Misc Panel) 93 97 83-110 MG/DL Microbiology Microbiology 11/18/19 Respiratory Virus Panel (PCR) (MALIKA) - Final, Complete 11/15/19 Urine Culture - Final, Complete Streptococcus Gordonii Staph.aureus Methicillin Resis 11/15/19 Blood Culture - Final, Complete NO GROWTH AFTER 5 DAYS 11/15/19 Blood Culture - Final, Complete NO GROWTH AFTER 5 DAYS Discharge Medications Scheduled Apixaban (Eliquis) 5 Mg Tablet, 5 MG PO BID, (Reported) Metoclopramide Hcl (Reglan) 5 Mg Tablet, 1 TAB PO TID 1 hour prior to procedure Multivitamins (Thera M Plus Tablet) 1 Each Tablet, 1 TAB PO BID Pantoprazole Sodium (Pantoprazole Sodium) 40 Mg Tablet.dr, 40 MG PO DAILY Senna (Senna Lax) 8.6 Mg Tablet, 2 TAB PO BID Scheduled PRN Meclizine HCl (Meclizine HCl) 25 Mg Tablet, 25 MG PO Q6HP PRN for DIZZINESS Ondansetron (Ondansetron Odt) 4 Mg Tab.rapdis, 4 MG PO TID PRN for NAUSEA OR VOMITING, (Reported) Allergies Coded Allergies: Penicillins (Verified Allergy, Unknown, 11/15/19) BIANCA ORR DO Nov 21, 2019 19:08 LOIDA CANCHOLA MD Nov 22, 2019 18:32
== END 2019-11-21 13:49 | DRG 392 ==
LOC: M ED 10:51 → EEVIPCON 15:13 → M ED INP 15:13 → ENRESERV 16:45 → M PCU 18:29 → M MSPAV 11-17 23:20
PROVIDERS: ADMIT Internal Medicine; ATTEND Student in an Organized Health Care Education/Training Program
DX: R11.2 Nausea with vomiting, unspecified (principal); E87.2 Acidosis; E46 Unspecified protein-calorie malnutrition; I12.9 Hypertensive chronic kidney disease with stage 1 through stage 4 chronic kidney disease, or unspecified chronic kidney disease; I27.81 Cor pulmonale (chronic); I27.20 Pulmonary hypertension, unspecified; E78.5 Hyperlipidemia, unspecified; N18.3 Chronic kidney disease, stage 3 (moderate); K76.0 Fatty (change of) liver, not elsewhere classified; E87.6 Hypokalemia; Z66 Do not resuscitate; E83.42 Hypomagnesemia; R33.9 Retention of urine, unspecified; K31.84 Gastroparesis; M35.00 Sjogren syndrome, unspecified; R63.4 Abnormal weight loss; M45.9 Ankylosing spondylitis of unspecified sites in spine; M34.9 Systemic sclerosis, unspecified; K21.9 Gastro-esophageal reflux disease without esophagitis; K59.00 Constipation, unspecified; M79.7 Fibromyalgia; F32.9 Major depressive disorder, single episode, unspecified; M10.9 Gout, unspecified; Z86.718 Personal history of other venous thrombosis and embolism; Z95.828 Presence of other vascular implants and grafts; Z90.49 Acquired absence of other specified parts of digestive tract; Z79.01 Long term (current) use of anticoagulants; Z88.0 Allergy status to penicillin; Z11.59 Encounter for screening for other viral diseases